=== PATIENT | female | born 1940 | race Caucasian/White ===

== ENCOUNTER 2017-08-06 06:01 | Emergency (ER) | payer OTHER ==
[~2017-08-06] VITALS: Ht 167.6 cm; Wt 68.2 kg
[~2017-08-06 06:01] MED LIST: Arimidex PO; CELEBREX200 MG PO; Calcium Carbonate/Vi PO; EFFEXOR XR150 MG PO; Ecotrin PO; Feosol PO; Senokot S,Pericolace PO; VITAMIN D1000 INTUN PO; Vicodin,Norco 5/325 PO
[2017-08-06] MEDS ORDERED: PERCOCET 5/31 TABLET PO (09:12)
[2017-08-06 10:23] VITALS: BP 122/70
== END 2017-08-06 10:27 | disposition home or self-care (01) ==
LOC: EME → EDBD 06:01 → EME 10:27
DX: S22.32XA Fracture of one rib, left side, initial encounter for closed fracture (principal); S50.02XA Contusion of left elbow, initial encounter; M54.5 Low back pain; W01.0XXA Fall on same level from slipping, tripping and stumbling without subsequent striking against object, initial encounter; F32.9 Major depressive disorder, single episode, unspecified; F41.9 Anxiety disorder, unspecified; Z88.0 Allergy status to penicillin
CPT/HCPCS: 71100; 72100; 73080; 99281; 99284; J2270